=== PATIENT | female | born 1950 | race Caucasian/White ===

== ENCOUNTER 2018-09-04 14:29 | Emergency (ER) | payer OTHER ==
[2018-09-04 14:31] VITALS: BP 102/66; TEMP 97.9; BMI 23.3
--- NOTE | 2018-09-04 14:59 | DI ---
EXAM: Three views of the right fingers. History: Trauma of the right fourth and fifth digits. Findings: No acute fracture or dislocation. Severe narrowing of the third and fifth DIP joints with osteophyte formation. Moderate narrowing of the other visualized interphalangeal joints. Moderate narrowing of the first carpal metacarpal joint and moderate to severe narrowing of the scaphoid trape zium articulation. Impression: 1. No acute osseous abnormality. 2. Polyarticular osteoarthritis
--- NOTE | 2018-09-04 15:34 | ED.PDOC ---
General ED Provider: Dr. ABIMBOLA HARMON Chief Complaint: Finger Pain/Injury Stated Complaint: right 5th finger jammed Time Seen by Physician: 14:30 Mode of Arrival: Walk-In Information Source: Patient Exam Limitations: No limitations Nursing and Triage Documentation Reviewed and Agree: Yes Does patient meet sepsis criteria?: No System Inflammatory Response Syndrome: Not Applicable Sepsis Protocol: For patient's 13 years and over: Temp is 96.8 and below OR 101 and greater Pulse >90 BPM Resp >20/minute Acutely Altered Mental Status Are patient's symptoms suggestive of a new infection, such as: -Pneumonia -Skin, Soft Tissue -Endocarditis -UTI -Bone, Joint Infection -Implantable Device -Acute Abdominal Infection -Wound Infection -Meningitis -Blood Stream Catheter Infection -Unknown Musculoskeletal Complaint Exam - Hand/Wrist Complaint/Exam Location of Pain: Reports: Right, Digit #5 Mechanism of Injury: Reports: Trauma Onset/Duration: today Symptoms Are: Still present Onset of Pain: Reports: Immediate Initial Severity: Moderate Current Severity: Moderate Location: Reports: Discrete Character: Reports: Aching Alleviating: Reports: Rest Aggravating: Reports: Movement Associated Signs and Symptoms: Reports: Swelling. Denies: Redness, Bruising, Fever, Weakness, Numbness, Tingling Dominant Hand: Right Related Surgical History: Reports: None Differential Diagnoses: Closed Fracture Review of Systems - Review Of Systems Constitutional: Reports: No symptoms Eyes: Reports: No symptoms Ears, Nose, Mouth, Throat: Reports: No symptoms Respiratory: Reports: No symptoms Cardiac: Reports: No symptoms GI: Reports: No symptoms : Reports: No symptoms Musculoskeletal: Reports: Joint pain (right 5th finger ) Skin: Reports: No symptoms Neurological: Reports: No symptoms Endocrine: Reports: No symptoms Hematologic/Lymphatic: Reports: No symptoms All Other Systems: Reviewed and Negative Past Medical History - Past Medical History Previously Healthy: Yes Endocrine: Reports: None Cardiovascular: Reports: None Respiratory: Reports: None Hematological: Reports: None Gastrointestinal: Reports: None Genitourinary: Reports: None Neuro/Psych: Reports: None Musculoskeletal: Reports: None Cancer: Reports: None Last Menstrual Period: N/A - Surgical History General Surgical History: Reports: None - Family History Family History: Reports: None - Social History Smoking Status: Current every day smoker Hx Substance Use: No Alcohol Screening: Occasionally - Immunizations Tetanus Shot up to Date: Yes Physical Exam - Physical Exam Appearance: Well-appearing, No pain distress, Well-nourished Eyes: LAURI, EOMI, Conjunctiva clear ENT: Ears normal, Nose normal, Oropharynx normal Respiratory: Airway patent, Breath sounds clear, Breath sounds equal, Respirations nonlabored Cardiovascular: RRR, Pulses normal, No rub, No murmur GI/: Soft, Nontender, No masses, Bowel sounds normal, No Organomegaly Musculoskeletal: Normal strength, ROM intact, No edema, No calf tenderness Skin: Warm, Dry, Normal color Neurological: Sensation intact, Motor intact, Reflexes intact, Cranial nerves intact, Alert, Oriented Psychiatric: Affect appropriate, Mood appropriate Interpretation - Radiology Interpretation Radiology Interpretation By: Radiologist Radiology Results: No acute changes Critical Care Note - Critical Care Note Total Time (mins): 0 Course - Course Orders, Labs, Meds: Orders Category Date Time Status FINGER(S) RIGHT MIN 2V Stat RADS 09/04/18 14:35 Ordered Vital Signs: Temp Pulse Resp BP Pulse Ox 09/04/18 14:30 97.9 F 79 18 102/66 96 Departure - Departure Time of Disposition: 15:33 Disposition: HOME SELF-CARE Discharge Problem: Injury of finger Instructions: Finger Sprain (ED) Condition: Good Pt referred to PMD for follow-up: Yes IPMP verified?: No Additional Instructions: Please call your Family Physician as soon as possible to schedule a follow-up appointment. Allergies/Adverse Reactions: Allergies No Known Allergies Allergy (Verified 09/04/18 14:32) Home Medications: Ambulatory Orders 1 [No Reported Medications] 09/04/18
== END 2018-09-04 15:37 | disposition home or self-care (01) ==
LOC: ED 14:29
DX: S69.91XA Unspecified injury of right wrist, hand and finger(s), initial encounter (principal); W22.8XXA Striking against or struck by other objects, initial encounter; F17.210 Nicotine dependence, cigarettes, uncomplicated
CPT/HCPCS: 99283

== ENCOUNTER 2018-09-22 10:17 | Outpatient (CLI) | payer OTHER ==
--- NOTE | 2018-09-22 11:06 | MAMMO ---
EXAM: Bilateral digital screening mammogram (2-D and 3-D) History: Screening Comparison: Bilateral mammogram 08/06/2016 Findings: MLO and CC views of bilateral breasts demonstrate scattered fibroglandular breast parenchy ma. CAD was reviewed by the radiologist. Tomosynthesis was performed. Stable benign bilateral janeth st calcifications. There are no dominant masses, no suspicious microcalcifications and no architectu ral distortions Impression: Benign stable mammogram. Recommend follow-up plain screen mammography in 1 year. BIRADS 2
== END 2018-09-22 10:18 | disposition home or self-care (01) ==
LOC: RAD 10:17
PROVIDERS: ATTEND Nurse Practitioner Family
DX: Z12.31 Encounter for screening mammogram for malignant neoplasm of breast (principal)
CPT/HCPCS: 77067

== ENCOUNTER 2019-04-14 18:01 | Emergency (ER) ==
[2019-04-14 18:01] VITALS: BMI 23.3
[2019-04-14 18:30] VITALS: BP 92/58; TEMP 98.1
[2019-04-14] MEDS ORDERED: SOLU-MEDROL 125 MG IM STA (20:02)
[2019-04-14] MEDS ORDERED: BENADRYL IM STA (20:02)
[2019-04-14] MEDS ORDERED: CLARITIN PO STA (20:03)
[2019-04-14] MEDS ORDERED: ZANTAC PO STA (20:03)
--- NOTE | 2019-04-14 20:06 | ED.PDOC ---
General ED Provider: Dr. EVELIO OJEDA Chief Complaint: Allergic Reaction Stated Complaint: Patient is a 68 year old female who comes to the ER with Rash on the left forearm righ tear face that started after she was eposed to [place] gnats. Has severe itching. Time Seen by Physician: 19:50 Mode of Arrival: Walk-In Information Source: Patient Primary Care Provider: YASEMIN ALCAZAR Nursing and Triage Documentation Reviewed and Agree: Yes Does patient meet sepsis criteria?: No System Inflammatory Response Syndrome: Not Applicable Sepsis Protocol: For patient's 13 years and over: Temp is 96.8 and below OR 101 and greater Pulse >90 BPM Resp >20/minute Acutely Altered Mental Status Are patient's symptoms suggestive of a new infection, such as: -Pneumonia -Skin, Soft Tissue -Endocarditis -UTI -Bone, Joint Infection -Implantable Device -Acute Abdominal Infection -Wound Infection -Meningitis -Blood Stream Catheter Infection -Unknown Skin Complaint Exam - Skin Rash/Itching Complaint/Exam Onset/Duration: 1 day Symptoms Are: Still present Initial Severity: Moderate Current Severity: Severe Location: Bilateral Cheeks, Right ear, left forearm Potential Exposures: Reports: Insect bite Prior Treatment: none Aggravating: Reports: Heat Alleviating: Reports: None Associated Signs and Symptoms: Denies: Difficulty breathing, Fever, Chills Skin Findings: Present: Urticaria Differential Diagnoses: Allergic Reaction, Contact Dermatitis, Urticaria Review of Systems - Review Of Systems Constitutional: Reports: No symptoms Eyes: Reports: No symptoms Ears, Nose, Mouth, Throat: Reports: No symptoms Respiratory: Reports: No symptoms Cardiac: Reports: No symptoms GI: Reports: No symptoms : Reports: No symptoms Musculoskeletal: Reports: No symptoms Skin: Reports: Rash Neurological: Reports: Anxiety Endocrine: Reports: No symptoms Hematologic/Lymphatic: Reports: No symptoms All Other Systems: Reviewed and Negative Past Medical History - Past Medical History Previously Healthy: Yes Endocrine: Reports: None Cardiovascular: Reports: None Respiratory: Reports: None Hematological: Reports: None Gastrointestinal: Reports: None Genitourinary: Reports: None Neuro/Psych: Reports: None Musculoskeletal: Reports: None Cancer: Reports: None Last Menstrual Period: n/a - Surgical History General Surgical History: Reports: Tonsillectomy, Other (cyst ) - Family History Family History: Reports: None - Social History Smoking Status: Current every day smoker Hx Substance Use: No Alcohol Screening: None Physical Exam - Physical Exam Appearance: Well-nourished Ill-appearing: Mild Eyes: LAURI, EOMI, Conjunctiva clear ENT: Ears normal, Nose normal, Oropharynx normal Neck: Supple Respiratory: Breath sounds diminished Skin: Warm, Dry Neurological: Alert, Oriented Psychiatric: Anxious Re-Evaluation - Re-Evaluation Time of Re-Evaluation: 20:50 Status: Improved Skin: Other (rash better) Critical Care Note - Critical Care Note Total Time (mins): 0 Course - Course Orders, Labs, Meds: Orders Category Date Time Status Diphenhydramine Inj [Benadryl] MEDS 04/14/19 20:02 Discontinued 50 mg IM ONCE STA Loratadine [Claritin] MEDS 04/14/19 20:03 Discontinued 10 mg PO ONCE STA Methylprednisolone Sod Succ/Pf [Solu-Medrol 125 mg] MEDS 04/14/19 20:02 Discontinued 125 mg IM ONCE STA Ranitidine HCl [Zantac] MEDS 04/14/19 20:03 Discontinued 300 mg PO ONCE STA Medications Discontinued Medications Generic Name Dose Route Start Last Admin Trade Name Freq PRN Reason Stop Dose Admin Diphenhydramine HCl 50 mg 04/14/19 20:02 04/14/19 20:07 Benadryl IM 04/14/19 20:03 50 mg ONCE STA Administration Loratadine 10 mg 04/14/19 20:03 04/14/19 20:08 Claritin PO 04/14/19 20:04 10 mg ONCE STA Administration Methylprednisolone Sodium Succinate 125 mg 04/14/19 20:02 04/14/19 20:07 Solu-Medrol 125 Mg IM 04/14/19 20:03 125 mg ONCE STA Administration Ranitidine HCl 300 mg 04/14/19 20:03 04/14/19 20:08 Zantac PO 04/14/19 20:04 300 mg ONCE STA Administration Vital Signs: Temp Pulse Resp BP Pulse Ox 04/14/19 18:23 98.1 F 70 20 92/58 L 95 Departure - Departure Time of Disposition: 21:00 Disposition: HOME SELF-CARE Discharge Problem: Allergic urticaria Insect bite Qualifiers: Encounter type: initial encounter Site of insect bite: forearm Laterality: left Qualified Code(s): S50.862A - Insect bite (nonvenomous) of left forearm, initial encounter Instructions: Urticaria (ED), Insect Bite or Sting (ED) Condition: Fair Pt referred to PMD for follow-up: Yes IPMP verified?: No Additional Instructions: Take Medications as prescribed Take over the counter Benadryl as needed for itching Follow up with PCP in 3 days Prescriptions: Prednisone 20 mg PO DAILYWM #5 tablet Allergies/Adverse Reactions: Allergies No Known Allergies Allergy (Verified 04/14/19 18:28) Home Medications: Ambulatory Orders Prednisone 20 mg PO DAILYWM #5 tablet 04/14/19 Disposition Discussed With: Patient, Family
== END 2019-04-14 20:49 | disposition home or self-care (01) ==
LOC: ED 18:01
DX: L50.0 Allergic urticaria (principal); S50.862A Insect bite (nonvenomous) of left forearm, initial encounter; W57.XXXA Bitten or stung by nonvenomous insect and other nonvenomous arthropods, initial encounter; F17.210 Nicotine dependence, cigarettes, uncomplicated
CPT/HCPCS: 96372; 99282

== ENCOUNTER 2019-04-20 19:02 | Emergency (ER) | payer OTHER ==
[2019-04-20 19:06] VITALS: BP 111/54; TEMP 97.5; BMI 23.6
--- NOTE | 2019-04-20 19:12 | ED.PDOC ---
General ED Provider: Dr. YOHANA FAUST-ER Chief Complaint: Bite Stated Complaint: keila been bitten by a gnat and now its infected Time Seen by Physician: 19:10 Mode of Arrival: Walk-In Information Source: Patient Exam Limitations: No limitations Primary Care Provider: YASEMIN ALCAZAR Nursing and Triage Documentation Reviewed and Agree: Yes Does patient meet sepsis criteria?: No System Inflammatory Response Syndrome: Not Applicable Sepsis Protocol: For patient's 13 years and over: Temp is 96.8 and below OR 101 and greater Pulse >90 BPM Resp >20/minute Acutely Altered Mental Status Are patient's symptoms suggestive of a new infection, such as: -Pneumonia -Skin, Soft Tissue -Endocarditis -UTI -Bone, Joint Infection -Implantable Device -Acute Abdominal Infection -Wound Infection -Meningitis -Blood Stream Catheter Infection -Unknown Skin Complaint Exam - Skin/Soft Tissue Complaint/Exam Onset/Duration: 24hrs Symptoms Are: Still present Timing: Constant Initial Severity: Mild Current Severity: Mild Location: posterior neck Character: Reports: Redness, Swelling, Raised Aggravating: Reports: Touch Associated Signs and Symptoms: Reports: Tenderness Related Surgical History: Reports: None Recent Exposure to Others w/Similar Symptoms: No Skin Findings: Present: Erythema, Pustules Joint Tenderness Present: No Differential Diagnoses: Infection Review of Systems - Review Of Systems Constitutional: Reports: No symptoms Eyes: Reports: No symptoms Ears, Nose, Mouth, Throat: Reports: No symptoms Respiratory: Reports: No symptoms Cardiac: Reports: No symptoms GI: Reports: No symptoms : Reports: No symptoms Musculoskeletal: Reports: No symptoms Skin: Reports: Lumps Neurological: Reports: No symptoms Endocrine: Reports: No symptoms Hematologic/Lymphatic: Reports: No symptoms All Other Systems: Reviewed and Negative Past Medical History - Past Medical History Previously Healthy: Yes Endocrine: Reports: None Cardiovascular: Reports: None Respiratory: Reports: None Hematological: Reports: None Gastrointestinal: Reports: None Genitourinary: Reports: None Neuro/Psych: Reports: None Musculoskeletal: Reports: None Cancer: Reports: None Last Menstrual Period: N/A - Surgical History General Surgical History: Reports: Tonsillectomy, Other (cyst ) - Family History Family History: Reports: None - Social History Smoking Status: Current every day smoker Hx Substance Use: No Alcohol Screening: Occasionally - Immunizations Tetanus Shot up to Date: No Physical Exam - Physical Exam Appearance: Well-appearing, No pain distress, Well-nourished Eyes: LAURI, EOMI, Conjunctiva clear ENT: Ears normal, Nose normal, Oropharynx normal Neck: Supple Respiratory: Airway patent, Breath sounds clear, Breath sounds equal, Respirations nonlabored Cardiovascular: RRR GI/: Soft, Nontender, No masses, Bowel sounds normal, No Organomegaly Musculoskeletal: Normal strength, ROM intact, No edema, No calf tenderness Skin: Warm, Dry, Normal color Neurological: Sensation intact, Motor intact, Reflexes intact, Cranial nerves intact, Alert, Oriented Psychiatric: Affect appropriate, Mood appropriate Critical Care Note - Critical Care Note Total Time (mins): 0 Course - Course Vital Signs: Temp Pulse Resp BP Pulse Ox 04/20/19 19:03 97.5 F L 86 18 111/54 L 95 Departure - Departure Time of Disposition: 19:12 Disposition: HOME SELF-CARE Discharge Problem: Skin pustule Instructions: Warm Compress or Soak (ED), Impetigo (ED) Condition: Good Pt referred to PMD for follow-up: Yes IPMP verified?: No Additional Instructions: clindamycin 300mg qid x 7 days---warm compresses----f/u with pcp in 1-2 days Allergies/Adverse Reactions: Allergies No Known Allergies Allergy (Verified 04/20/19 19:05) Home Medications: Ambulatory Orders 1 [No Reported Medications] 04/20/19 Disposition Discussed With: Patient, Family
== END 2019-04-20 19:21 | disposition home or self-care (01) ==
LOC: ED 19:02
DX: L08.9 Local infection of the skin and subcutaneous tissue, unspecified (principal); F17.210 Nicotine dependence, cigarettes, uncomplicated
CPT/HCPCS: 99282